=== PATIENT | male | born 1965 | race Caucasian/White ===

== ENCOUNTER 2016-06-15 05:32 | Observation (INO) | payer SELFPAY ==
[~2016-06-15] VITALS: Ht 172.7 cm; Wt 80.4 kg
[2016-06-15] VITALS (9 sets, daily range): BP systolic 145–155; BP diastolic 109–121; PULSE 79–96; RESP 14–20; TEMP 96.3–97.7; O2SAT 95–98
[~2016-06-15 05:32] MED LIST: ALBUAER3 INH; ATOR40TA16 PO; CYCL1TAB29 PO; HYDR12.57 PO; LISI10TA3 PO; PERC7.5T13 PO; VIAG100T PO; WELLTAB39 PO; XANA1TAB2 PO; ZOLP10TA3 PO
[2016-06-15 05:56] LABS: AUTOMATED NEUTROPHIL # 4.6 TH/MM3 (1.8-7.7); BASOPHIL % 0.7 % (0.0-2.0); EOSINOPHIL # 0.1 TH/MM3 (0-0.4); EOSINOPHIL % 1.4 % (0.0-4.0); HEMATOCRIT 39.1 % (39.0-51.0); LYMPH % 25.3 % (9.0-44.0); LYMPHOCYTE # 1.7 TH/MM3 (1.0-4.8); MEAN CELL VOLUME 87.4 FL (80.0-100.0); MEAN CORPUSCULAR HEMOGLOBIN 28.8 PG (27.0-34.0); MEAN CORPUSCULAR HGB CONC 32.9 % (32.0-36.0); MONO % 7.9 % (0.0-8.0); NEUT % 64.7 % (16.0-70.0); PLATELET COUNT 391 TH/MM3 (150-450); RED BLOOD COUNT 4.47 MIL/MM3 (4.50-5.90); RED CELL DISTRIBUTION WIDTH 12.3 % (11.6-17.2); WHITE BLOOD COUNT 6.9 TH/MM3 (4.0-11.0)
[2016-06-15 05:59] LABS: HEMO FLAGS DIFF FINAL
[2016-06-15] MEDS ORDERED: SODIUM CHLORIDE 0.9% FLUSH 10 ML FLUSH IVF PRN ×2 (06:00→06:30)
[2016-06-15] MEDS ORDERED: ASPI81CH CHEW (06:04)
[2016-06-15 06:11] LABS: CHLORIDE 104 MEQ/L (98-107); POTASSIUM 3.4 MEQ/L (3.5-5.1); SODIUM (NA) 144 MEQ/L (136-145)
--- NOTE | 2016-06-15 06:11 | PD ---
HPI Chief Complaint: Neuro Symptoms/ Deficits Time Seen by Provider: 05:46 Travel History International Travel<30 days: No Contact w/Intl Traveler<30days: No Traveled to known affect area: No History of Present Illness HPI 50-year-old male presents to the emergency department by private transportation for evaluation of slurring of speech. Patient states he awakened from sleep around 4:30 this morning and no one else was awakened the house when he started to sitting with the radio he noticed he was having some difficulty with his speech. Patient reports that this resolved after a brief period of time and then when he tried to sitting again noticed that he was having some difficulty with his speech did seem to again clear and go back to normal and stuttering symptoms seemed to have resolved. Patient states he had something similar to this 1 year ago so decided to come to the emergency room for evaluation. Patient was able to drive himself to the emergency room. Patient does not report headache visual disturbance difficulty swallowing weakness on one side of his body or the other side of his body or balance disturbance. Patient does have history of hypertension and is prescribed aspirin daily. Patient occasionally drinks alcohol but does not smoke cigarettes. Patient states he is not having any difficulty with his speech at this time. Patient does not report any chest pain or shortness of breath. No abdominal pain. No recent injury fall trauma or febrile illness. PFSH Past Medical History Narrative Medical Anxiety/depression, hypertension, dyslipidemia, TIA, GERD, chronic pain syndrome ; vasectomy, leg surgery; occasional alcohol use, no tobacco use; nursing notes reviewed Blood Disorders: No Anxiety: Yes Depression: Yes Cancer: No Cardiovascular Problems: Yes High Cholesterol: Yes Congestive Heart Failure: No Cerebrovascular Accident: No Diabetes: No Diminished Hearing: No Endocrine: No Gastrointestinal Disorders: Yes GERD: Yes Genitourinary: No Hypertension: Yes (NO MEDS) Immune Disorder: No Implanted Vascular Access Dvce: No Musculoskeletal: Yes Neurologic: No Psychiatric: Yes Reproductive: No Respiratory: Yes (CHRONIC COUGH) Ulcer: No Past Surgical History Genitourinary Surgery: Yes (vasectomy) Pacemaker: No Other Surgery: Yes (RT LEG) Social History Alcohol Use: Yes (occ) Tobacco Use: Yes (1 PACK PER WEEK) Substance Use: Yes (smokes marijuana) Allergies-Medications (Allergen,Severity, Reaction): Coded Allergies: *MDRO Multi-Drug Resistant Organism (Verified Adverse Reaction, Unknown, ) 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 MRSA PCR Screen NEGATIVE - 09/26/2014 and 02/13/2015 CLEARED by Infection Control Reported Meds & Prescriptions Reported Meds & Active Scripts Active Zolpidem (Zolpidem Tartrate) 10 Mg Tab 10 Mg PO HS PRN Atorvastatin (Atorvastatin Calcium) 40 Mg Tab 40 Mg PO HS Percocet (Oxycodone-Acetaminophen) 7.5-325 mg Tab 1 Tab PO Q6H PRN Xanax (Alprazolam) 1 Mg Tab 1 Mg PO Q8H PRN Hydrochlorothiazide 12.5 Mg Cap 12.5 Mg PO DAILY Lisinopril 10 Mg Tab 10 Mg PO DAILY Proair Hfa 8.5 GM Inh (Albuterol Sulfate) 90 Mcg/Act Aer 2 Puff INH Q6H PRN 108 mcg/actuation Wellbutrin Xl 24 HR (Bupropion HCl) 300 Mg Tab 450 Mg PO DAILY Reported Omeprazole 20 Mg Tab 20 Mg PO DAILY Aspirin 81 Mg Chew 162 Mg CHEW ONCE Review of Systems Except as stated in HPI: all other systems reviewed are Neg General / Constitutional: No: Fever Eyes: No: Visual changes HENT: No: Headaches, Lightheadedness Cardiovascular: No: Chest Pain or Discomfort, Syncope Respiratory: No: Shortness of Breath Gastrointestinal: No: Nausea, Vomiting, Abdominal Pain Genitourinary: No: Dysuria Musculoskeletal: No: Pain Skin: No Rash Neurologic: Positive: Slurred Speech (intermittent "not now"), No: Weakness, Dizziness, Syncope, Focal Abnormalities, Coordination Problem, Ataxia, Headache , Paresthesia Psychiatric: No: Anxiety Hematologic/Lymphatic: No: Easy Bruising Physical Exam Narrative GENERAL: Well-developed well-nourished male in no acute distress no respiratory distress; GCS 15; NIHSS: 0 SKIN: Warm and dry. HEAD: Atraumatic. Normocephalic. EYES: Pupils equal and round. No scleral icterus. No injection or drainage. ENT: No nasal bleeding or discharge. Mucous membranes pink and moist. NECK: Trachea midline. No JVD. CARDIOVASCULAR: Regular rate and rhythm. Radial and dorsalis pedis pulses 2+ to palpation bilaterally. RESPIRATORY: No accessory muscle use. Clear to auscultation. Breath sounds equal bilaterally. GASTROINTESTINAL: Abdomen soft, non-tender, nondistended. Hepatic and splenic margins not palpable. MUSCULOSKELETAL: Extremities without clubbing, cyanosis, or edema. No obvious deformities. NEUROLOGICAL: Awake and alert. No obvious cranial nerve deficits. Motor grossly within normal limits. Five out of 5 muscle strength in the arms and legs. No limb ataxia. No pronator drift. Normal speech. PSYCHIATRIC: Appropriate mood and affect; insight and judgment normal. Data Data Last Documented VS Vital Signs Date Time Temp Pulse Resp B/P Pulse Ox O2 Delivery O2 Flow Rate FiO2 06/15/16 05:40 96 18 149/109 Orders Electrocardiogram (06/15/16 05:46) Prothrombin Time / Inr (Pt) (06/15/16 05:46) Act Partial Throm Time (Ptt) (06/15/16 05:46) Complete Blood Count With Diff (06/15/16 05:46) Basic Metabolic Panel (Bmp) (06/15/16 05:46) Drug Screen, Random Urine (06/15/16 05:46) Troponin I (06/15/16 05:46) Urinalysis - C+S If Indicated (06/15/16 05:46) Ct Brain W/O Iv Contrast(Rout) (06/15/16 05:46) Chest, Single Ap (06/15/16 05:46) Ecg Monitoring (06/15/16 05:46) Iv Access Insert/Monitor (06/15/16 05:46) Oximetry (06/15/16 05:46) Sodium Chloride 0.9% Flush (Ns Flush) (06/15/16 06:00) Sodium Chlor 0.9% 1000 Ml Inj (Ns 1000 M (06/15/16 06:15) Head Of Bed (06/15/16 06:11) Mri Brain W&W/O Contrast (06/15/16 ) Mra Brain W/O Contrast (Cow) (06/15/16 ) Admit Order (Ed Use Only) (06/15/16 ) ^ Saline Lock (06/15/16 06:29) Resp Oxygen Yury C Titrat 1-4 L (06/15/16 ) Notify Dr: Other (06/15/16 06:29) Sodium Chloride 0.9% Flush (Ns Flush) (06/15/16 09:00) Sodium Chloride 0.9% Flush (Ns Flush) (06/15/16 06:30) Consult Neurology (06/15/16 ) Labs Laboratory Tests Test 06/15/16 05:48 White Blood Count 6.9 TH/MM3 Red Blood Count 4.47 MIL/MM3 Hemoglobin 12.9 GM/DL Hematocrit 39.1 % Mean Corpuscular Volume 87.4 FL Mean Corpuscular Hemoglobin 28.8 PG Mean Corpuscular Hemoglobin 32.9 % Concent Red Cell Distribution Width 12.3 % Platelet Count 391 TH/MM3 Mean Platelet Volume 6.7 FL Neutrophils (%) (Auto) 64.7 % Lymphocytes (%) (Auto) 25.3 % Monocytes (%) (Auto) 7.9 % Eosinophils (%) (Auto) 1.4 % Basophils (%) (Auto) 0.7 % Neutrophils # (Auto) 4.6 TH/MM3 Lymphocytes # (Auto) 1.7 TH/MM3 Monocytes # (Auto) 0.5 TH/MM3 Eosinophils # (Auto) 0.1 TH/MM3 Basophils # (Auto) 0.0 TH/MM3 CBC Comment DIFF FINAL Differential Comment Prothrombin Time 11.6 SEC Prothromb Time International 1.0 RATIO Ratio Activated Partial 26.1 SEC Thromboplast Time Sodium Level 144 MEQ/L Potassium Level 3.4 MEQ/L Chloride Level 104 MEQ/L Carbon Dioxide Level 34.3 MEQ/L Anion Gap 6 MEQ/L Blood Urea Nitrogen 9 MG/DL Creatinine 0.87 MG/DL Estimat Glomerular Filtration 93 ML/MIN Rate Random Glucose 93 MG/DL Calcium Level 8.1 MG/DL Troponin I LESS THAN 0.02 NG/ML MDM Medical Decision Making Medical Screen Exam Complete: Yes Emergency Medical Condition: Yes Medical Record Reviewed: Yes (February 2015 MRI brain with and without contrast minimal nonspecific white matter changes no acute stroke; MRA brain without contrast no acute changes circumflex on Alanis; ultrasound carotids normal) Interpretation(s) EKG: Normal sinus rhythm rate [address] elevation injury pattern or ectopy noted CT brain w/o contrast: Reading per radiologist Dr. Memo Vela "normal examination" CBC & BMP Diagram 06/15/16 05:48 Vital Signs Date Time Temp Pulse Resp B/P Pulse Ox O2 Delivery O2 Flow Rate FiO2 06/15/16 05:40 96 18 149/[address] 06/15/16 0546 Signed Impressions: Service Date/Time: Wednesday, June 15, 2016 05:44 - CONCLUSION: Normal examination. Memo Vela Jr., MD Chest X-Ray 06/15/16 0546 Signed Impressions: Service Date/Time: Wednesday, June 15, 2016 06:20 - CONCLUSION: No acute disease. Memo Vela Jr., MD Differential Diagnosis CVA, TIA, arrhythmia, hypoglycemia, substance ingestion, ACS Narrative Course Patient placed on brake press operator placed supine normal saline 70 cc per hour ordered patient's blood sugar was 106 patient is monitored in sinus rhythm by brake press operator and initial blood pressure was 149/106. Patient sent for stat CT brain noncontrast and call placed to neurology. Stroke alert was NOT called as patient was asymptomatic and NIHSS score was 0. At 6:02 AM patient return from CT; patient's age without slurring and patient states his speech is his normal. Remainder of neurologic exam is within normal range. Repeat neuro exam NIHSS: 0; patient now reports this has happened a few times over the past year since his initial presentation about a year ago but did not have it checked out. At 6:[address] brain noncontrast is normal. No focal neurologic findings; speech clear, patient reports his speech is his normal. Physician Communication Physician Communication Neurology called at and discussed with Neurologist Dr Askew 06:02 AM --- not stroke alert; MR and neurology consult this AM; case discussed with Dr Aviles for OBS admission Diagnosis Primary Impression: TIA (transient ischemic attack) Qualified Code: G45.9 - Transient cerebral ischemia, unspecified type Additional Impression: Hypertension Admitting Information Admitting Physician Requests: Viviana Michuad MD June 15, 2016 06:11
[2016-06-15 06:14] LABS: ANION GAP 6 MEQ/L (5-15); BICARBONATE 34.3 MEQ/L (21.0-32.0); BLOOD UREA NITROGEN 9 MG/DL (7-18)
[2016-06-15 06:15] LABS: APTT (PATIENT) 26.1 SEC (24.3-30.1); PROTHROMBIN TIME - PATIENT 11.6 SEC (9.8-11.6)
[2016-06-15 06:18] LABS: GLOMERULAR FILTRATION RATE 93 ML/MIN (>89)
--- NOTE | 2016-06-15 06:20 | RADHPO ---
EXAM DATE/TIME: 06/15/2016 05:44 [facility] COMPARISON: CT BRAIN W/O CONTRAST, February 12, 2015, 16:08. INDICATIONS : Slurred speech. Evaluate for cerebrovascular attack. RADIATION DOSE: 62.44 CTDIvol (mGy) MEDICAL HISTORY : Hypertension. SURGICAL HISTORY : None. ENCOUNTER: Initial ACUITY: 1 day PAIN SCALE: 0/10 LOCATION: cranial TECHNIQUE: Multiple contiguous axial images were obtained of the head. Using automated exposure control and adj ustment of the mA and/or kV according to patient size, radiation dose was kept as low as reasonably a chievable to obtain optimal diagnostic quality images. FINDINGS: CEREBRUM: The ventricles are normal for age. No evidence of midline shift, mass lesion, hemorrhage or acute in farction. No extra-axial fluid collections are seen. POSTERIOR FOSSA: The cerebellum and brainstem are intact. The 4th ventricle is midline. The cerebellopontine angle i s unremarkable. EXTRACRANIAL: The visualized portion of the orbits is intact. SKULL: The calvaria is intact. No evidence of skull fracture. CONCLUSION: Normal examination. Memo Vela Jr., MD on June 15, 2016 at 6:18 Board Certified Radiologist. This report was verified electronically.
[2016-06-15] MEDS: SODIUM CHLOR 0.9% 1000 ML INJ 1,000 ML IV SCH ×4 (06:23→16:46)
--- NOTE | 2016-06-15 06:28 | RADHPO ---
EXAM DATE/TIME: 06/15/2016 06:20 [facility] COMPARISON: CHEST SINGLE AP, February 12, 2015, 15:49. INDICATIONS : Weakness. CVA symtoms. MEDICAL HISTORY : None. SURGICAL HISTORY : None. ENCOUNTER: Initial ACUITY: 1 day PAIN SCORE: 6/10 LOCATION: Bilateral chest FINDINGS: A single view of the chest demonstrates the lungs to be symmetrically aerated without evidence of mas s, infiltrate or effusion. Calcified granuloma within the right lung apex is stable. The cardiomedias tinal contours are unremarkable. Osseous structures are intact. CONCLUSION: No acute disease. Memo Vela Jr., MD on June 15, 2016 at 6:27 Board Certified Radiologist. This report was verified electronically.
[2016-06-15] MEDS ORDERED: GLUCAGON 1 MG/ML VIAL OTHER PRN (06:30)
[2016-06-15] MEDS ORDERED: SODIUM CHLORIDE 0.9% FLUSH 10 ML FLUSH IV FLUSH PRN (06:30)
[2016-06-15] MEDS ORDERED: DEXTROSE 50% IN WATER 50 ML VIAL(D50) IV PUSH PRN (06:30)
[2016-06-15] MEDS ORDERED: OMEP20TA PO (06:45)
[2016-06-15] MEDS ORDERED: ASPIRIN 325 MG TAB PO ONE (06:45)
[2016-06-15] MEDS: INSULIN ASPART SUPPLEMENTAL SCALE SQ SCH ×4 (07:00→21:00)
[2016-06-15 07:17] LABS: BLOOD, URINE NEG (NEG); GLUCOSE,URINE NEG (NEG); KETONE, URINE NEG (NEG); NITRITE,URINE NEG (NEG); PH, URINE 7.5 (5.0-8.5)
[2016-06-15 07:18] LABS: METHOD OF COLLECTION CLEAN CATCH; URINE COLOR STRAW (YELLW/STRAW)
[2016-06-15 07:21] LABS: CULTURE IF INDICATED CULT NOT INDICATED; RBC, URINE 0-3 /hpf (0-3)
[2016-06-15 07:22] LABS: COMMENT (UR) CULT NOT INDICATED; COMMENT2 (UR) MUCOUS PRESENT; SQUAMOUS EPITHELIAL CELL URINE 0-5 /hpf (0-5)
[2016-06-15 07:33] LABS: AMPHETAMINE, URINE NEG (NEG)
[2016-06-15 07:41] LABS: COCAINE, URINE NEG (NEG)
[2016-06-15 07:46] LABS: BARBITURATES, URINE NEG (NEG)
--- NOTE | 2016-06-15 08:40 | RADHPO ---
EXAM DATE/TIME: 06/15/2016 07:57 [facility] COMPARISON: MRA BRAIN W/O CONTRAST, February 13, 2015, 14:09. INDICATIONS : Slurred speech. MEDICAL HISTORY : Hypertension. Diabetes mellitus type 2. SURGICAL HISTORY : Right leg. ENCOUNTER: Initial ACUITY: 1 day PAIN SCORE: 2/10 LOCATION: head Please note a normal MRA of the brain does not entirely exclude the possibility of a small aneurysm, nor the possibility of distal intracranial vessel disease. TECHNIQUE: 3D time of flight MRA was performed. Source images, multiplanar STS MIP, and 3D volume MIP reconstru ctions were reviewed. FINDINGS: There is excellent visualization of the major intracranial arteries out to the second-order branch ve ssels. There is no evidence for aneurysm, vessel truncation or stenosis, and no evidence for vascula r malformation. Persistent circulation of the right posterior cerebral artery. Dominant left ve rtebral artery. Basilar artery unremarkable. There are some atherosclerotic changes of the distal pos terior tibial arteries. Distal internal carotid arteries are normal in caliber. Anterior communicatin g artery. CONCLUSION: 1. Normal variants as described above. 2. Atherosclerotic changes of the distal posterior cerebral arteries. 3. No major vessel occlusion/stenosis. Julio Clay MD on June 15, 2016 at 8:36 Board Certified Radiologist. This report was verified electronically.
--- NOTE | 2016-06-15 08:47 | RADHPO ---
EXAM DATE/TIME: 06/15/2016 07:57 [facility] COMPARISON: MRI BRAIN W & W/O CONTRAST, February 13, 2015, 14:09. INDICATIONS : Slurred speech. MEDICAL HISTORY : Diabetes mellitus type 2. Hypertension. SURGICAL HISTORY : Right leg. ENCOUNTER: Initial ACUITY: 1 day PAIN SCORE: 2/10 LOCATION: head TECHNIQUE: Multiplanar, multisequence MRI of the brain was performed without contrast. FINDINGS: CEREBRUM: The ventricles are normal for age. No evidence of midline shift, mass lesion, hemorrhage or acute in farction. No extraaxial fluid collections are seen. The pituitary gland and suprasellar cistern are normal in configuration. WHITE MATTER: A few scattered foci of bright T2 signal abnormalities are seen in the white matter. POSTERIOR FOSSA: The cerebellum and brainstem are intact. The 4th ventricle is midline. The cerebellopontine angle is unremarkable. The cerebellar tonsils are normal in position. DIFFUSION IMAGING: No focal areas of restricted diffusion are seen. No evidence of acute infarction. EXTRACRANIAL: The visualized portions of the orbits and paranasal sinuses are unremarkable. CONCLUSION: 1. Minimal nonspecific white matter changes. 2. Otherwise unremarkable MRI of the brain. Julio Clay MD on June 15, 2016 at 8:42 Board Certified Radiologist. This report was verified electronically.
[2016-06-15] MEDS: SODIUM CHLORIDE 0.9% FLUSH 10 ML FLUSH IV FLUSH SCH ×2 (09:00→23:05)
[2016-06-15] MEDS ORDERED: SODIUM CHLORIDE 0.9% FLUSH 10 ML FLUSH IV FLUSH SCH (09:00)
--- NOTE | 2016-06-15 09:19 | PD.CONS ---
History of Present Illness Service Neurology Consult Requested By er Reason for Consult tia Primary Care Physician Rome Hassna MD History of Present Illness 50-year-old male presents to the emergency department by private transportation for evaluation of slurring of speech. occurred early am, now clear and go back to normal and stuttering symptoms seemed to have resolved. no weakness, no vision loss, no sensory symptoms. no smith. bp 149/109, ct brain negative. glucose no hx of clotting d/o. Patient states he had something similar to this 1 year ago so decided to come to the emergency room for evaluation and w/u negative for acute stroke. had severe htn at that time and told to control bp and take aspirin daily which he has been. today mri brain no acute lesion stable. 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 MRSA PCR Screen NEGATIVE - 09/26/2014 and 02/13/2015 CLEARED by Infection Control Reported Meds & Prescriptions Reported Meds & Active Scripts Active Zolpidem (Zolpidem Tartrate) 10 Mg Tab 10 Mg PO HS PRN Atorvastatin (Atorvastatin Calcium) 40 Mg Tab 40 Mg PO HS Percocet (Oxycodone-Acetaminophen) 7.5-325 mg Tab 1 Tab PO Q6H PRN Xanax (Alprazolam) 1 Mg Tab 1 Mg PO Q8H PRN Hydrochlorothiazide 12.5 Mg Cap 12.5 Mg PO DAILY Lisinopril 10 Mg Tab 10 Mg PO DAILY Proair Hfa 8.5 GM Inh (Albuterol Sulfate) 90 Mcg/Act Aer 2 Puff INH Q6H PRN 108 mcg/actuation Wellbutrin Xl 24 HR (Bupropion HCl) 300 Mg Tab 450 Mg PO DAILY Reported Omeprazole 20 Mg Tab 20 Mg PO DAILY Aspirin 81 Mg Chew 162 Mg CHEW ONCE Review of Systems Except as stated in HPI: all other systems reviewed are Neg/as above, admit hp Review of Systems All other ROS: ROS reviewed as documented in chart Past Family Social History Allergies: Coded Allergies: *MDRO Multi-Drug Resistant Organism (Verified Adverse Reaction, Unknown, ) 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 MRSA PCR Screen NEGATIVE - 09/26/2014 and 02/13/2015 CLEARED by Infection Control Active Ordered Medications Current Medications Medications (Trade) Dose Ordered Sig/Vishnu Route Start Time Stop Time Status Last Admin (NS 1000 ml Inj) 1,000 ml @ 70 mls/hr [id number] IV 06/15/16 06:15 06/15/16 06:23 (NS Flush) 2 ml BID IV FLUSH 06/15/16 09:00 (NS Flush) 2 ml UNSCH PRN IV FLUSH 06/15/16 06:30 (D50w (Vial) Inj) 25 ml UNSCH PRN IV PUSH 06/15/16 06:30 (Glucagon Inj) 1 mg UNSCH PRN OTHER 06/15/16 06:30 Exam I&O / VS Vital Signs Date Time Temp Pulse Resp B/P Pulse Ox O2 Delivery O2 Flow Rate FiO2 06/15/16 06:53 85 14 145/116 96 Room Air 06/15/16 05:40 96 18 149/109 General: Alert and Oriented, No acute distress Neurologic: Alert, Oriented, No focal defects Psychiatric: Cooperative, Appropriate mood & affect Review/Management Diagnosis/Plan: (1) TIA (transient ischemic attack) Plan: possible recurrent tia vs 2/2 htn vs anxiety vs sz recs change to plavix bp control- diastolic running high. wonder if it could be related to wellbutrin at all? defer to medical/pcp statin heme eval for hypercoag state- could be done in vs outpatient- defer to medical team exercise can f/u outpatient in 1-2 weeks (2) Anxiety disorder (3) Hypertension (4) HLD (hyperlipidemia) Problem Qualifiers (1) TIA (transient ischemic attack): Qualified Code: G45.9 - Transient cerebral ischemia, unspecified type (2) Anxiety disorder: Qualified Code: F41.1 - Generalized anxiety disorder (3) Hypertension: Qualified Code: I10 - Essential hypertension (4) HLD (hyperlipidemia): Qualified Code: E78.2 - Mixed hyperlipidemia Lance Melendez MD June 15, 2016 09:19
[2016-06-15] MEDS: CLOPIDOGREL 75 MG TAB PO SCH (10:49)
[2016-06-15] MEDS: HEPARIN SODIUM - SQ 10,000 UNITS/ML VIAL SQ SCH ×3 (10:49→23:05)
[2016-06-15] MEDS ORDERED: ALBUTEROL SULFATE 90 MCG/ACT HFA 8 GM INHALER INH PRN (14:00)
[2016-06-15] MEDS ORDERED: ASPIRIN 81 MG CHEW TAB CHEW ONE (14:00)
[2016-06-15] MEDS ORDERED: ZOLPIDEM TARTRATE 10 MG TAB PO PRN (14:00)
[2016-06-15] MEDS ORDERED: XANA1TAB2 PO (14:31)
[2016-06-15] MEDS ORDERED: PERC7.5T13 PO (14:31)
--- NOTE | 2016-06-15 14:32 | PD.PN.STU ---
Subjective Remarks Patient is a 50 year old gentleman with pertinent PMH of TIA, HPL, and HTN who presented to the ED 06/15 with a complaint of slurred speech. He woke from sleep and began listening to the radio when he noticed his speech was gargled/slurred and he could not control it. He denies vision loss, headache, weakness during the episode. He had a similar episode one year ago and the workup was negative. He was told to take an aspirin at that time and placed on BP medication. He denies vomiting, diarrhea, loss of consciousness, and headache. PMH: anxiety/depression HTN HPL TIA GERD lower back pain (chronic) Meds: Zolpidem -statin Percocet Xanax HCTZ Lisinopril Proair Wellbutrin Omeprazole Aspirin PSH: Vasectomy Leg surgery for a cut/wound FH: unknown (adopted) Social: very rarely smokes rarely drinks sexually active with girlfriend of 10 years Objective Vitals GENERAL: Well-developed well-nourished male in no acute distress no respiratory distress SKIN: Warm and dry. HEAD: Atraumatic. Normocephalic. EYES: Pupils equal and round. No scleral icterus. No injection or drainage. Extraocular movements intact. ENT: Mucous membranes pink and moist. NECK: Trachea midline. No JVD. CARDIOVASCULAR: Regular rate and rhythm. Radial and dorsalis pedis pulses appreciated bilaterally. RESPIRATORY: No accessory muscle use. Clear to auscultation. Breath sounds equal bilaterally. GASTROINTESTINAL: Abdomen soft, non-tender, nondistended. No organomegaly. MUSCULOSKELETAL: Extremities without clubbing, cyanosis, or edema. No obvious deformities. NEUROLOGICAL: Awake and alert. No obvious cranial nerve deficits. Motor grossly within normal limits. Five out of 5 muscle strength in the arms and legs. No limb ataxia. No pronator drift. Normal speech. PSYCHIATRIC: Appropriate mood and affect; insight and judgment normal. Vital Signs Date Time Temp Pulse Resp B/P Pulse Ox O2 Delivery O2 Flow Rate FiO2 06/15/16 12:00 97.5 88 20 151/111 98 06/15/16 11:38 96 21 06/15/16 08:30 96.8 85 20 155/121 98 06/15/16 06:53 85 14 145/116 96 Room Air 06/15/16 05:40 96 18 149/109 I/O 06/14/16 06/14/16 06/14/16 06/15/16 06/15/16 06/15/16 06:59 14:59 22:59 06:59 14:59 22:59 Output Total 300 ml Balance -300 ml Output Urine Total 300 ml # Voids 1 Result Diagram: 06/15/16 0548 06/15/16 0548 A/P Assessment and Plan TIA: Place on telemetry Order carotid U/S Consider Heparin to Warfarin bridge for anticoagulation Hypertension: Currently 151/111 Increase HCTZ to 25 mg Hyperlipidemia: Order lipid panel Hypokalemia: Continue to monitor - currently 3.5 Hypocalcemia: Continue to monitor - currently 8.1 GERD: On pantoprazole Chronic lower back pain: Continue home medications - Percocet Depression: Continue Wellbutrin Anxiety: Xanax Gonzalo Garsia June 15, 2016 14:32 Daren Umaña MD June 16, 2016 14:12
[2016-06-15] MEDS: oxyCODONE/ACETAMINOPHEN 7.5 MG/325 MG TAB PO PRN ×2 (14:56→22:00)
[2016-06-15] MEDS: PANTOPRAZOLE SOD 20 MG DELAYED RELEASE TAB PO SCH (14:56)
[2016-06-15] MEDS: LISINOPRIL 10 MG TAB PO SCH (14:56)
[2016-06-15] MEDS: ALPRAZolam 1 MG TAB PO PRN (14:56)
[2016-06-15] MEDS ORDERED: BUPROPION HCL 150 MG PO SCH (15:15)
--- NOTE | 2016-06-15 15:34 | EC ---
Study Study Date:06/15/2016 STUDY CONCLUSIONS SUMMARY - Left ventricle: The cavity size was normal. There was mild focal basal hypertrophy of the septum. Systolic function was normal. The estimated ejection fraction was in the range of 55% to 60%. Wall motion was normal; there were no regional wall motion abnormalities. - Mitral valve: Mild regurgitation. - Tricuspid valve: Mild regurgitation. If LV function is below 40, please consider prescribing an ACEI or ARB or document rationale for non-use. PROCEDURE DATA STUDY STATUS: Elective. Procedure: Transthoracic echocardiography. Image quality was good. Scanning was performed from the parasternal, apical, and subcostal acoustic windows. Study completion: The patient tolerated the procedure well. Transthoracic echocardiography. M-mode, complete 2D, complete spectral Doppler, and color Doppler. Patient status: Inpatient. CARDIAC ANATOMY LEFT VENTRICLE: The cavity size was normal. There was mild focal basal hypertrophy of the septum. Systolic function was normal. The estimated ejection fraction was in the range of 55% to 60%. Wall motion was normal; there were no regional wall motion abnormalities. AORTIC VALVE: Trileaflet; normal thickness leaflets. Doppler: Transvalvular velocity was within the normal range. There was no stenosis. No regurgitation. AORTA: Aortic root: The aortic root was normal in size. MITRAL VALVE: Structurally normal valve. Doppler: Transvalvular velocity was within the normal range. There was no evidence for stenosis. Mild regurgitation. LEFT ATRIUM: The atrium was normal in size. RIGHT VENTRICLE: The cavity size was normal. Wall thickness was normal. PULMONIC VALVE: Doppler: Transvalvular velocity was within the normal range. There was no evidence for stenosis. No regurgitation. TRICUSPID VALVE: Structurally normal valve. Doppler: Transvalvular velocity was within the normal range. Mild regurgitation. PULMONARY ARTERY: The main pulmonary artery was normal-sized. Systolic pressure was within the normal range. RIGHT ATRIUM: The atrium was normal in size. PERICARDIUM: There was no pericardial effusion. SYSTEMIC VEINS: Inferior vena cava: The vessel was normal in size. BASIC MEASUREMENTS ADULT Normal Left ventricle LV internal dimension, ED, chordal level, 43.2 mm 43-52 PLAX LV internal dimension, ES, chordal level, 33.4 mm 23-38 PLAX Fractional shortening, chordal level, PLAX *23 % >29 LV posterior wall thickness, ED 10.2 mm IVS/LVPW ratio, ED *1.42 <1.3 Ventricular septum Septal thickness, ED 14.5 mm Aortic valve Leaflet separation 20 mm 15-26 Right ventricle RV internal dimension, ED, PLAX 24.7 mm 19-38 BASIC MEASUREMENTS ADULT Normal Aortic valve Leaflet separation 20 mm 15-26 Aorta Root diameter, ED 37 mm 20-37 Left atrium Anterior-posterior dimension, ES 37 mm 19-40 LA/aortic root ratio 1 DOPPLER MEASUREMENTS ADULT Normal Main pulmonary artery Pressure, S 25 mm Hg =30 Mitral valve Peak E-wave velocity 63.2 cm/s Peak A-wave velocity 65.6 cm/s Peak E/A ratio 1 Tricuspid valve Regurgitant peak velocity 194 cm/s Peak RV-RA gradient, S 15 mm Hg Maximal regurgitant velocity 194 cm/s Systemic veins Estimated CVP 10 mm Hg Right ventricle RV pressure, S 25 mm Hg <30 LEGEND: Mean values are shown as u=mean value. Asterisk (*) dueñas values outside specified normal range. Prepared and signed by Corine Carlin [id number]
--- NOTE | 2016-06-15 15:37 | EKG ---
Date Performed: 06/15/2016 Time Performed: 05:59:54 PTAGE: 50 years EKG: Sinus rhythm . Compared to prior tracing no significant change Normal ECG PREVIOUS TRACING : 02/12/2015 15.44 DOCTOR: Radhika Light Interpretating Date/Time 06/15/2016 15:34:54
[2016-06-15] MEDS ORDERED: POTASSIUM CHLORIDE 10 MEQ CONTROLLED RELEASE TAB PO ONE (16:00)
--- NOTE | 2016-06-15 16:03 | HHI.HP ---
HPI Service [facility] Hospitalists Primary Care Physician Rome Hassan MD Admission Diagnosis TIA/intermittent speech disturbance; HTN Diagnoses: Chief Complaint: Slurred speech Travel History International Travel<30 Days: No Contact w/Intl Traveler <30 Da: No Traveled to Known Affected Are: No History of Present Illness This is a 54-year-old male with past medical history of hypertension, hyperlipidemia, bipolar disorder, depression who presents to [facility] after he had an episode of slurred speech this a.m. The patient states that he woke up around 4:30 AM on his usual state of health and then had what he calls a few sentences of slurred speech. The patient states that everything resolved after a few seconds. He denies double vision, blurry vision, arm or lotion any weakness, facial droop. The patient complains of headache at the moment of interview, denies nausea or vomiting, denies social breath. The patient also complains of left-sided chest pain described as throbbing, nonradiating. The patient states he has been getting this chest pain on and off for the past 2 months. He states that the pain sometimes gets relief with ingestion of fluids was at times it doesn't. Denies palpitations or diaphoresis. Review of Systems As per history of present illness, other systems reviewed by me and negative Past Family Social History Past Medical History 1. Hypertension. 2. Hyperlipidemia. 3. Tobacco abuse. 4. TIAs. 5. Bipolar disorder. 6. Depression. 7. Cocaine abuse. Past Surgical History 1. Vasectomy 2. Leg surgery for a cut/wound Reported Medications Percocet (Oxycodone-Acetaminophen) 7.5-325 mg Tab 1 Tab PO Q6H PRN Xanax (Alprazolam) 1 Mg Tab 1 Mg PO Q8H PRN Zolpidem (Zolpidem Tartrate) 10 Mg Tab 10 Mg PO HS PRN Atorvastatin (Atorvastatin Calcium) 40 Mg Tab 40 Mg PO HS Hydrochlorothiazide 12.5 Mg Cap 12.5 Mg PO DAILY Lisinopril 10 Mg Tab 10 Mg PO DAILY Proair Hfa 8.5 GM Inh (Albuterol Sulfate) 90 Mcg/Act Aer 2 Puff INH Q6H PRN 108 mcg/actuation Wellbutrin Xl 24 HR (Bupropion HCl) 300 Mg Tab 450 Mg PO DAILY Omeprazole 20 Mg Tab 20 Mg PO DAILY Aspirin 81 Mg Chew 162 Mg CHEW ONCE Allergies: Coded Allergies: *MDRO Multi-Drug Resistant Organism (Verified Adverse Reaction, Unknown, ) 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 MRSA PCR Screen NEGATIVE - 09/26/2014 and 02/13/2015 CLEARED by Infection Control Active Ordered Medications Current Medications Medications (Trade) Dose Ordered Sig/Vishnu Route Start Time Stop Time Status Last Admin (NS 1000 ml Inj) 1,000 ml @ 70 mls/hr [id number] IV 06/15/16 06:15 06/15/16 06:23 (NS Flush) 2 ml BID IV FLUSH 06/15/16 09:00 06/15/16 09:00 (NS Flush) 2 ml UNSCH PRN IV FLUSH 06/15/16 06:30 (D50w (Vial) Inj) 25 ml UNSCH PRN IV PUSH 06/15/16 06:30 (Glucagon Inj) 1 mg UNSCH PRN OTHER 06/15/16 06:30 (Plavix) 75 mg DAILY PO 06/15/16 09:30 06/15/16 10:49 (Heparin Inj) 5,000 units DAILY@00,08,16 SQ 06/15/16 09:30 06/15/16 10:49 (Lipitor) 40 mg HS PO 06/15/16 21:00 (Proair Hfa Inh) 2 puff Q6H PRN INH 06/15/16 14:00 (Xanax) 1 mg Q8H PRN PO 06/15/16 14:00 06/15/16 14:56 (Lipitor) 40 mg HS PO 06/15/16 21:00 Patient Own Medication PT OWN MED: buPROP... DAILY PO 06/15/16 15:15 Hold (Microzide) 12.5 mg DAILY PO 06/16/16 09:00 (Prinivil) 10 mg DAILY PO 06/15/16 14:00 06/15/16 14:56 (Percocet 7.5-325 Mg) 1 tab Q6H PRN PO 06/15/16 14:00 06/15/16 14:56 (Ambien) 10 mg HS PRN PO 06/15/16 14:00 (Protonix) 20 mg DAILY PO 06/15/16 14:00 06/15/16 14:56 (KCl) 30 meq ONCE ONCE PO 06/15/16 16:00 06/15/16 16:01 Family History Unknown since patient is adopted. Social History Patient states he rarely smokes. He states occasionally drinks alcohol Denies illicit drug use Patient previously abused cocaine and marijuana. Physical Exam Vital Signs Vital Signs Date Time Temp Pulse Resp B/P Pulse Ox O2 Delivery O2 Flow Rate FiO2 06/15/16 12:00 97.5 88 20 151/111 98 06/15/16 11:38 96 21 06/15/16 08:30 96.8 85 20 155/121 98 06/15/16 06:53 85 14 145/116 96 Room Air 06/15/16 05:40 96 18 149/109 Physical Exam GENERAL: This is a well-nourished, well-developed patient, in no apparent distress. SKIN: No rashes, ecchymoses or lesions. Cool and dry. HEAD: Atraumatic. Normocephalic. No temporal or scalp tenderness. EYES: Pupils equal round and reactive. Extraocular motions intact. No scleral icterus. No injection or drainage. ENT: Nose without bleeding, purulent drainage or septal hematoma. Throat without erythema, tonsillar hypertrophy or exudate. Uvula midline. Airway patent. NECK: Trachea midline. No JVD or lymphadenopathy. Supple, nontender, no meningeal signs. CARDIOVASCULAR: Regular rate and rhythm without murmurs, gallops, or rubs. RESPIRATORY: Clear to auscultation. Breath sounds equal bilaterally. No wheezes , rales, or rhonchi. GASTROINTESTINAL: Abdomen soft, non-tender, nondistended. No hepato-splenomegaly , or palpable masses. No guarding. MUSCULOSKELETAL: Extremities without clubbing, cyanosis, or edema. No joint tenderness, effusion, or edema noted. No calf tenderness. Negative Homans sign bilaterally. NEUROLOGICAL: Awake and alert. Cranial nerves II through XII intact. Motor and sensory grossly within normal limits. Five out of 5 muscle strength in all muscle groups. Normal speech. Laboratory Laboratory Tests Test 06/15/16 06/15/16 05:48 07:05 White Blood Count 6.9 Red Blood Count 4.47 Hemoglobin 12.9 Hematocrit 39.1 Mean Corpuscular Volume 87.4 Mean Corpuscular Hemoglobin 28.8 Mean Corpuscular Hemoglobin 32.9 Concent Red Cell Distribution Width 12.3 Platelet Count 391 Mean Platelet Volume 6.7 Neutrophils (%) (Auto) 64.7 Lymphocytes (%) (Auto) 25.3 Monocytes (%) (Auto) 7.9 Eosinophils (%) (Auto) 1.4 Basophils (%) (Auto) 0.7 Neutrophils # (Auto) 4.6 Lymphocytes # (Auto) 1.7 Monocytes # (Auto) 0.5 Eosinophils # (Auto) 0.1 Basophils # (Auto) 0.0 CBC Comment DIFF FINAL Differential Comment Prothrombin Time 11.6 Prothromb Time International 1.0 Ratio Activated Partial 26.1 Thromboplast Time Sodium Level 144 Potassium Level 3.4 Chloride Level 104 Carbon Dioxide Level 34.3 Anion Gap 6 Blood Urea Nitrogen 9 Creatinine 0.87 Estimat Glomerular Filtration 93 Rate Random Glucose 93 Calcium Level 8.1 Troponin I LESS THAN 0.02 Vitamin B12 Level 195 Thyroid Stimulating Hormone 1.510 3rd Gen Urine Collection Type CLEAN CATCH Urine Color STRAW Urine Turbidity CLEAR Urine pH 7.5 Urine Specific [place] 1.010 Urine Protein NEG Urine Glucose (UA) NEG Urine Ketones NEG Urine Occult Blood NEG Urine Nitrite NEG Urine Bilirubin NEG Urine Leukocyte Esterase NEG Urine RBC 0-3 Urine Squamous Epithelial 0-5 Cells Microscopic Urinalysis Comment CULT NOT INDICATED Urine Collection Time 0705 Urine Opiates Screen NEG Urine Barbiturates Screen NEG Urine Amphetamines Screen NEG Urine Benzodiazepines Screen POS Urine Cocaine Screen NEG Urine Cannabinoids Screen NEG Result Diagram: 06/15/16 0548 06/15/1648 Imaging Last Impressions Head CT 06/15/1646 Signed Impressions: Service Date/Time: Wednesday, June 15, 2016 05:44 - CONCLUSION: Normal examination. Memo Vela Jr., MD Chest X-Ray 06/15/16 0546 Signed Impressions: Service Date/Time: Wednesday, June 15, 2016 06:20 - CONCLUSION: No acute disease. Memo Vela Jr., MD Head Magnetic Resonance Angiography 06/15/16 0000 Signed Impressions: Service Date/Time: Wednesday, June 15, 2016 07:57 - CONCLUSION: 1. Normal variants as described above. 2. Atherosclerotic changes of the distal posterior cerebral arteries. 3. No major vessel occlusion/stenosis. Julio Clay MD Brain MRI 06/15/16 0000 Signed Impressions: Service Date/Time: Wednesday, June 15, 2016 07:57 - CONCLUSION: 1. Minimal nonspecific white matter changes. 2. Otherwise unremarkable MRI of the brain. Julio Clay MD Reviewed by me Assessment and Plan Problem List: (1) TIA (transient ischemic attack) ICD Code: G45.9 Status: Acute Plan: Head CT normal Brain MRI minimal nonspecific white matter changes, otherwise normal. Head MRA normal viands. Atherosclerotic changes of the distal posterior cerebral arteries but no major vessel occlusion/stenosis observed. Place patient under observation in the medical floor Monitor neuro checks every 4 hours Appreciate nephrology recommendations Neurology recommends changing aspirin to Plavix, BP control since diastolic blood pressure running high I will resume home antihypertensive medications and adjust dose as needed. I will consult hematology for evaluation for evaluation of hypercoagulable state Slurred speech could also be caused by medications, however will resume while hospitalized and observe. (2) Anxiety disorder ICD Code: F41.9 Status: Chronic Plan: To be stable at this time, continue Wellbutrin, alprazolam (3) Hypertension ICD Code: I10 Status: Chronic Plan: Seems to be slightly elevated. I will resume hydrochlorothiazide and lisinopril. I will increase the dose of lisinopril from 10-20 mg by mouth daily (4) HLD (hyperlipidemia) ICD Code: E78.5 Status: Acute Plan: Continue statin. Check fasting lipid profile. (5) Chest pain ICD Code: R07.9 Status: Acute Plan: Patient is having recurrent chest pain. EKG shows normal sinus rhythm without signs of ischemia, will repeat EKG now since patient is having chest pain. We'll repeat troponins which was negative on admission. Chest x-ray reviewed by me and without acute disease. If EKG and repeat troponin negative then will place patient nothing by mouth at midnight and order a nuclear stress test given that the patient has risk factors including hypertension, hyperlipidemia, smoking, TIA, H an unknown family history being adopted. Assessment and Plan DVT prophylaxis: SCDs, heparin subcutaneous. Code Status Full code Discussed Condition With Patient Problem Qualifiers (1) TIA (transient ischemic attack): Qualified Code: G45.9 - Transient cerebral ischemia, unspecified type (2) Anxiety disorder: Qualified Code: F41.1 - Generalized anxiety disorder (3) Hypertension: Qualified Code: I10 - Essential hypertension (4) HLD (hyperlipidemia): Qualified Code: E78.2 - Mixed hyperlipidemia (5) Chest pain: Qualified Code: R07.9 - Chest pain, unspecified type Daren Umaña MD June 15, 2016 16:03
--- NOTE | 2016-06-15 16:22 | MG ---
cc: COREY SOOD M.D. Lab No: [id number] Date: 06/15/2016 Age: 50 Sex: M Race: DATE OF : 1965, 50 years old. REFERRING PHYSICIAN: Dr. Melendez HISTORY: [id number] with photic stimulation, this is a sleep study, MRI shows nonspecific white matter changes. Admitted for slurred speech, some stuttering, history of hypertension, chronic coughing, anxiety, alcohol and substance use, caffeine, tobacco use, hyperlipidemia. MEDICATIONS: Medicines are Lipitor, Plavix, aspirin. DESCRIPTION OF RECORD: Shows some mild artifact, overall has alpha rhythm of 9 Hz, 20-60 microvolts seems to be asleep during the portion of the study some sleep spindles are noted. Some movement artifact in the photic stimulation was done. There is a posterior driving response. There is some questionable sharps seen at epoch 66. then dissipates again there is some slowing. The patient is asleep. IMPRESSION Questionable sharp wave activity noted in one since the ends epoch 66, may be due to patient's sleep state, however, no active seizure-like events noted. The rest of the EEG was unremarkable. Clinical correlation. MD BARRETT Gaines/halie /4:04 PM /4:12 PM
[2016-06-15 16:32] LABS: HEMOGLOBIN A1a 1.2 %; HEMOGLOBIN A1b 1.6 %; HEMOGLOBIN Ao 85.6 %; HEMOGLOBIN LA1C 1.8 %; HEMOGLOBIN P3 3.6 %
[2016-06-15] MEDS ORDERED: LISINOPRIL 10 MG TAB PO ONE (17:15)
[2016-06-15] MEDS ORDERED: CYANOCOBALAMIN 1000 MCG/ML VIAL IM ONE (18:00)
--- NOTE | 2016-06-15 20:54 | MB ---
cc: YOLI MONTGOMERY MD,LARA Cho M.D. DATE OF CONSULTATION: 06/15/2016 REASON FOR CONSULTATION: DATE OF : [address] Marisela Huber. CHIEF COMPLAINT: Dr. Huber requests consultation for Mr. Kaplan regarding thrombophilia associated with TIA symptoms. HISTORY OF PRESENT ILLNESS Mr. Kaplan is a 50-year-old man with multiple medical problems. He has history of hypertension, hyperlipidemia, chronic tobacco use, depression and chronic anxiety diagnosed over 20 years ago. He reportedly had symptoms of TIA in the past about a year ago. He had slurred speech. On the morning of admission he reports having slurred speech. He describes having speech coming out that was not what he intended. For this reason he came in to the hospital for evaluation. He denies any history of bipolar disorder. He denies other psychiatric illness. He has depression and anxiety. He was admitted for the slurred speech and possible TIA like symptoms. Workup shows MRA on June 15, 2016 normal variant. There is atherosclerotic changes of the distal posterior cerebral arteries. No major vessel occlusion or stenosis. MRI of the brain shows minimal nonspecific white matter changes, otherwise unremarkable with no acute stroke. CT scan of the head was normal. At the time of the consultation, Mr. Kaplan feels that he is back to his baseline. He is not sure of what has occurred. His symptoms were similar to a year ago. His anxiety is managed by his primary physician with Wellbutrin and Xanax at least three times a day. He finds that this regimen works very well. He denies any physical dependence on the Xanax. He reports compliance with his Wellbutrin given that it controls his moods. He has a son and is not certain if his son inherited his anxiety. 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 PAST MEDICAL HISTORY 1. Anxiety/depression 2. Hypertension 3. Dyslipidemia 4. TIA 5. Gastroesophageal reflux. PAST SURGICAL HISTORY Vasectomy. Right leg surgery. SOCIAL HISTORY He drinks occasionally. He smokes marijuana. He smokes a pack per week. ALLERGIES NO KNOWN DRUG ALLERGIES. CURRENT MEDICATIONS 6. Microzide. 7. Lipitor 8. Proair. 9. Xanax. 10. Prinivil. 11. Percocet p.r.n. 12. Ambien p.r.n. 13. Protonix. 14. Plavix. PHYSICAL EXAMINATION VITAL SIGNS: Temperature 96.3, heart rate 92, respiratory 20, blood pressure 154/120, saturation 96%. GENERAL: Mr. Kaplan is a well-developed, well-nourished man who looks his stated age. He looks anxious. His speech is fluent. HEENT: His pupils are round, reactive to light and accommodation. Oropharynx is clear. Neck is supple. Lungs are clear to auscultation. Cardiovascular: Exam reveals normal rate, rhythm. Abdomen is benign. Lower extremity with no edema. Neurological: Exam is nonfocal. LABORATORY DATA Significant for CBC with mild anemia. Hemoglobin of 12.9, white blood cell count, platelet count are normal. Chemistry with a sodium normal, potassium of 3.4, B12 level was low. ASSESSMENT/PLAN Mr. Kaplan is a 50-year-old man with multiple medical problems described above. His prominent symptoms are related to his generalized anxiety disorder. He has been diagnosed with anxiety for 20 years and is compliant with his anxiety medicine particularly his Wellbutrin and Xanax. He came in with a history of slurred speech. He was normal at the time of the presentation. It is not clear the etiology of his slurred speech as the workup for TIA has been negative. He reports someone speaking other than himself. He was quite aware of this. He denies it being a conversion disorder. We discussed the concern for thrombophilia evaluation. It is not certain if he had a thrombotic event. He reports having a stroke or TIA in the past. The outcome of that is not clear. He is not on aspirin prophylaxis regularly. Review of the labs showed decrease in serum B12 level. I recommend empiric treatment. I will check factor anti-parietal cell antibody. He is offered to follow up in the clinic up. In the meantime, I will limit the workup to checking antiphospholipid antibodies which would be helpful. If positive it would suggest that aspirin prophylaxis indefinitely would be indicated. MD KRISTOPHER Lunsford/SERA /5:28 PM /7:28 PM
[2016-06-15] MEDS ORDERED: ATORVASTATIN 40 MG TAB PO SCH ×2 (21:00)
[2016-06-16] VITALS: BP 132/87; PULSE 79; RESP 16; TEMP 97; O2SAT 95
[2016-06-16] MEDS: ALPRAZolam 1 MG TAB PO PRN ×2 (00:48→09:14)
[2016-06-16 04:00] VITALS: BP 154/100; PULSE 82; RESP 18; TEMP 95.6; O2SAT 96
--- NOTE | 2016-06-16 05:56 | EKG ---
Date Performed: 06/15/2016 Time Performed: 15:19:26 PTAGE: 50 years EKG: Sinus rhythm Normal ECG PREVIOUS TRACING : 06/15/2016 05.59 Compared to prior tracing no significant change DOCTOR: Manasa Rosario Interpretating Date/Time 06/16/2016 05:56:04
[2016-06-16] MEDS: INSULIN ASPART SUPPLEMENTAL SCALE SQ SCH ×3 (06:04→16:00)
[2016-06-16] MEDS: oxyCODONE/ACETAMINOPHEN 7.5 MG/325 MG TAB PO PRN (06:09)
[2016-06-16] MEDS: CLOPIDOGREL 75 MG TAB PO SCH (08:17)
[2016-06-16] MEDS: PANTOPRAZOLE SOD 20 MG DELAYED RELEASE TAB PO SCH (08:17)
[2016-06-16] MEDS: LISINOPRIL 10 MG TAB PO SCH (08:17)
[2016-06-16] MEDS: SODIUM CHLORIDE 0.9% FLUSH 10 ML FLUSH IV FLUSH SCH (08:20)
[2016-06-16] MEDS: HEPARIN SODIUM - SQ 10,000 UNITS/ML VIAL SQ SCH ×2 (08:20→15:40)
--- NOTE | 2016-06-16 08:29 | PD.PN.STU ---
Subjective Remarks no recurrences of TIA/stroke symptoms reports IBS is bothering him today, has concerns about exerting himself for stress test reports some epigastric pain which he believes is GERD pending blood work Objective Vitals GENERAL: Well-developed well-nourished male in no acute distress no respiratory distress SKIN: Warm and dry. HEAD: Atraumatic. Normocephalic. EYES: Pupils equal and round. No scleral icterus. No injection or drainage. Extraocular movements intact. ENT: Mucous membranes pink and moist. NECK: Trachea midline. No JVD. CARDIOVASCULAR: Regular rate and rhythm. Radial and dorsalis pedis pulses appreciated bilaterally. RESPIRATORY: No accessory muscle use. Clear to auscultation. Breath sounds equal bilaterally. GASTROINTESTINAL: Abdomen soft, non-tender, nondistended. No organomegaly. MUSCULOSKELETAL: Extremities without clubbing, cyanosis, or edema. No obvious deformities. NEUROLOGICAL: Awake and alert. No obvious cranial nerve deficits. Motor grossly within normal limits. Five out of 5 muscle strength in the arms and legs. No limb ataxia. No pronator drift. Normal speech. PSYCHIATRIC: Appropriate mood and affect; insight and judgment normal. Vital Signs Date Time Temp Pulse Resp B/P Pulse Ox O2 Delivery O2 Flow Rate FiO2 06/16/16 04:00 95.6 82 18 154/100 96 06/16/16 00:00 97.0 79 16 132/87 95 06/15/16 20:30 79 06/15/16 20:08 95 21 06/15/16 20:00 97.7 82 18 149/114 96 06/15/16 16:00 96.3 92 20 154/120 96 06/15/16 12:00 97.5 88 20 151/111 98 06/15/16 11:38 96 21 06/15/16 08:30 96.8 85 20 155/121 98 I/O 06/15/16 06/15/16 06/15/16 06/16/16 06/16/16 06/16/16 07:00 15:00 23:00 07:00 15:00 23:00 Intake Total 420 ml 280 ml 1290 ml Output Total 300 ml 0 ml Balance 120 ml 280 ml 1290 ml Intake Oral 280 ml 640 ml IV Total 420 ml 650 ml Output Urine Total 300 ml Stool Total 0 ml # Voids 1 1 3 # Bowel Movements 0 Result Diagram: 06/15/1648 06/15/16547 A/P Assessment and Plan TIA: No recurrences of symptoms Plavix for anticoagulation Chest pain: Possibly due to GERD which he says he suffers with Troponins came back negative Plan to do stress testing if he feels up to it later today/tomorrow Hypertension: Currently 154/100 Increase HCTZ to 25 mg Hyperlipidemia: Order lipid panel Hypokalemia: Continue to monitor - currently 3.5 on 06/15 Hypocalcemia: Continue to monitor - currently 8.1 on 06/15 GERD: On pantoprazole Chronic lower back pain: Continue home medications - Percocet Depression: Continue Wellbutrin Anxiety: Xanax Gonzalo Garsia June 16, 2016 08:28 Daren Umaña MD June 16, 2016 14:13
[2016-06-16 08:54] VITALS: BP 146/113; PULSE 82; RESP 15; TEMP 97.8; O2SAT 96
[2016-06-16] MEDS ORDERED: HYDROCHLOROTHIAZIDE 12.5 MG CAP PO SCH (09:00)
[2016-06-16 09:27] LABS: HDL CHOLESTEROL 35.2 MG/DL (40.0-60.0)
[2016-06-16] MEDS ORDERED: ACETAMINOPHEN 325 MG TAB PO PRN (10:30)
[2016-06-16] MEDS ORDERED: ONDANSETRON ODT 4 MG TAB PO PRN (10:30)
[2016-06-16 11:53] VITALS: BP 138/112; PULSE 68; RESP 15; TEMP 96.7; O2SAT 98
[2016-06-16] MEDS ORDERED: HYDROCHLOROTHIAZIDE 12.5 MG CAP PO ONE (12:45)
--- NOTE | 2016-06-16 12:55 | HHI.PR ---
Subjective Remarks patient c/o diffuse abdominal pain or diarrhea states is due to IBS denies cp/sob denies fevers/chills bp slightly elevated this am, especially diastolic K low 3.4 Objective Vitals Vital Signs Date Time Temp Pulse Resp B/P Pulse Ox O2 Delivery O2 Flow Rate FiO2 06/16/16 11:53 96.7 68 15 138/112 98 06/16/16 08:54 97.8 82 15 146/113 96 06/16/16 04:00 95.6 82 18 154/100 96 06/16/16 00:00 97.0 79 16 132/87 95 06/15/16 20:30 79 06/15/16 20:08 95 21 06/15/16 20:00 97.7 82 18 149/114 96 06/15/16 16:00 96.3 92 20 154/120 96 I/O 06/15/16 06/15/16 06/15/16 06/16/16 06/16/16 06/16/16 07:00 15:00 23:00 07:00 15:00 23:00 Intake Total 420 ml 280 ml 1290 ml Output Total 300 ml 0 ml Balance 120 ml 280 ml 1290 ml Intake Oral 280 ml 640 ml IV Total 420 ml 650 ml Output Urine Total 300 ml Stool Total 0 ml # Voids 1 1 3 # Bowel Movements 0 Result Diagram: 06/15/16 0548 06/15/16 0548 Imaging Last Impressions Head CT 06/15/1646 Signed Impressions: Service Date/Time: Wednesday, June 15, 2016 05:44 - CONCLUSION: Normal examination. Memo Vela Jr., MD Chest X-Ray 06/15/16 0546 Signed Impressions: Service Date/Time: Wednesday, June 15, 2016 06:20 - CONCLUSION: No acute disease. Memo Vela Jr., MD Head Magnetic Resonance Angiography 06/15/16 0000 Signed Impressions: Service Date/Time: Wednesday, June 15, 2016 07:57 - CONCLUSION: 1. Normal variants as described above. 2. Atherosclerotic changes of the distal posterior cerebral arteries. 3. No major vessel occlusion/stenosis. Julio Clay MD Brain MRI 06/15/16 0000 Signed Impressions: Service Date/Time: Wednesday, June 15, 2016 07:57 - CONCLUSION: 1. Minimal nonspecific white matter changes. 2. Otherwise unremarkable MRI of the brain. Julio Clay MD Objective Remarks GENERAL: This is a well-nourished, well-developed patient, in no apparent distress. SKIN: No rashes, ecchymoses or lesions. Cool and dry. HEAD: Atraumatic. Normocephalic. No temporal or scalp tenderness. EYES: Pupils equal round and reactive. Extraocular motions intact. No scleral icterus. No injection or drainage. ENT: Nose without bleeding, purulent drainage or septal hematoma. Throat without erythema, tonsillar hypertrophy or exudate. Uvula midline. Airway patent. NECK: Trachea midline. No JVD or lymphadenopathy. Supple, nontender, no meningeal signs. CARDIOVASCULAR: Regular rate and rhythm without murmurs, gallops, or rubs. RESPIRATORY: Clear to auscultation. Breath sounds equal bilaterally. No wheezes , rales, or rhonchi. GASTROINTESTINAL: Abdomen soft, mild diffuse tenderness to palpation, nondistended. No hepato-splenomegaly, or palpable masses. No guarding. MUSCULOSKELETAL: Extremities without clubbing, cyanosis, or edema. No joint tenderness, effusion, or edema noted. No calf tenderness. Negative Homans sign bilaterally. NEUROLOGICAL: Awake and alert. Cranial nerves II through XII intact. Motor and sensory grossly within normal limits. Five out of 5 muscle strength in all muscle groups. Normal speech. Medications and IVs Current Medications Medications (Trade) Dose Ordered Sig/Vishnu Route Start Time Stop Time Status Last Admin (NS Flush) 2 ml BID IV FLUSH 06/15/16 09:00 06/15/16 23:05 (NS Flush) 2 ml UNSCH PRN IV FLUSH 06/15/16 06:30 (D50w (Vial) Inj) 25 ml UNSCH PRN IV PUSH 06/15/16 06:30 (Glucagon Inj) 1 mg UNSCH PRN OTHER 06/15/16 06:30 (Plavix) 75 mg DAILY PO 06/15/16 09:30 06/16/16 08:17 (Heparin Inj) 5,000 units DAILY@00,08,16 SQ 06/15/16 09:30 06/16/16 08:20 (Lipitor) 40 mg HS PO 06/15/16 21:00 06/15/16 21:59 (Proair Hfa Inh) 2 puff Q6H PRN INH 06/15/16 14:00 (Xanax) 1 mg Q8H PRN PO 06/15/16 14:00 06/16/16 09:14 Patient Own Medication PT OWN MED: buPROP... DAILY PO 06/15/16 15:15 Hold (Prinivil) 10 mg DAILY PO 06/15/16 14:00 06/16/16 08:17 (Percocet 7.5-325 Mg) 1 tab Q6H PRN PO 06/15/16 14:00 06/16/16 06:09 (Ambien) 10 mg HS PRN PO 06/15/16 14:00 06/15/16 22:00 (Protonix) 20 mg DAILY PO 06/15/16 14:00 06/16/16 08:17 (Zofran Odt) 4 mg Q6H PRN PO 06/16/16 10:30 06/16/16 11:04 (Tylenol) 650 mg Q4H PRN PO 06/16/16 10:30 06/16/16 11:05 (Hydrodiuril) 25 mg DAILY PO 06/17/16 09:00 (Bentyl) 20 mg QID PO 06/16/16 13:00 06/16/16 13:19 (Lactinex) 1 tab TID PO 06/16/16 13:00 06/16/16 13:20 A/P Problem List: (1) TIA (transient ischemic attack) ICD Code: G45.9 Status: Acute Plan: Head CT normal Brain MRI minimal nonspecific white matter changes, otherwise normal. Head MRA normal viands. Atherosclerotic changes of the distal posterior cerebral arteries but no major vessel occlusion/stenosis observed. Place patient under observation in the medical floor Monitor neuro checks every 4 hours Appreciate nephrology recommendations Neurology recommends changing aspirin to Plavix, BP control since diastolic blood pressure running high The dose of lisinopril has been increased from 10-20 mg by mouth daily. I will increase the dose of hydrochlorothiazide to 25 mg by mouth daily since blood pressure is still slightly elevated. Continue to monitor vital signs. No further episodes of slurred speech. Appreciate hematology consultation. Antiphospholipid antibodies were ordered as per hematology. Dr. Caldwell ordered a parietal cell antibodies and antiphospholipid antibodies. We'll follow-up recommendations. B12 also noted to be low, patient started on IV vitamin B12 empiric treatment. (2) Anxiety disorder ICD Code: F41.9 Status: Chronic Plan: To be stable at this time, continue Wellbutrin, alprazolam (3) Hypertension ICD Code: I10 Status: Chronic Plan: Seems to be slightly elevated. The dose of lisinopril has been increased from 10-20 mg by mouth daily. Hydrochlorothiazide dose will be increased to 25 mg by mouth daily since the diastolic blood pressure is still elevated. (4) HLD (hyperlipidemia) ICD Code: E78.5 Status: Acute Plan: Continue statin. Fasting lipid profile shows elevated triglycerides of 322, LDL cholesterol 32 and LDL cholesterol 35.2. (5) Chest pain ICD Code: R07.9 Status: Acute Plan: Patient is complaining of recurrent left-sided chest pain. EKG reviewed by me showed normal sinus rhythm without signs of ischemia. Serial EKGs without change. Troponins were checked and negative 2. Will order nuclear stress test to be done today. Patient has several cardiac risk factors including hypertension, hyperlipidemia, current smoking, TIA and unknown family history. (6) Abdominal pain ICD Code: R10.9 Status: Acute Plan: Possibly due to IBS. Patient states that this is similar to when he hits his IBS symptoms. It is usually diarrhea predominant. I will Rx Bentyl, Librax and probiotics. Assessment and Plan GI prophylaxis: PPI DVT prophylaxis: SCDs, heparin subcutaneous. Discharge Planning Possible discharge later today or in a.m. pending stress testing result and improvement in abdominal pain. Problem Qualifiers (1) TIA (transient ischemic attack): Qualified Code: G45.9 - Transient cerebral ischemia, unspecified type (2) Anxiety disorder: Qualified Code: F41.1 - Generalized anxiety disorder (3) Hypertension: Qualified Code: I10 - Essential hypertension (4) HLD (hyperlipidemia): Qualified Code: E78.2 - Mixed hyperlipidemia (5) Chest pain: Qualified Code: R07.9 - Chest pain, unspecified type (6) Abdominal pain: Qualified Code: R10.9 - Abdominal pain, unspecified location Daren Umaña MD June 16, 2016 12:55
[2016-06-16] MEDS: DICYCLOMINE HCL 20 MG TAB PO SCH ×2 (13:19→18:25)
[2016-06-16] MEDS: LACTOBACILLUS ACIDOPHILUS TAB PO SCH ×2 (13:20→18:26)
[2016-06-16] MEDS ORDERED: REGADENOSON INJ 0.4 MG/5 ML SYR IV ONE (13:43)
--- NOTE | 2016-06-16 16:14 | RADHPO ---
EXAM DATE/TIME: 06/16/2016 13:44 [facility] COMPARISON: No previous studies available for comparison. INDICATIONS : Left sided chest pain. Angina. DOSE: 25.4 mCi Tc99m Myoview at stress. 8.5 mCi Tc99m Myoview at rest. 0.4 mg Lexiscan STRESS SYMPTOMS: Dyspnea. EJECTION FRACTION: 49% MEDICAL HISTORY : Hypertension. SURGICAL HISTORY : Vasectomy. ENCOUNTER: Initial ACUITY: 1 day PAIN SCALE: 6/10 LOCATION: Left chest TECHNIQUE: The patient underwent pharmacologic stress with infusion of prescribed dose. Continuous ECG tracing was monitored during stress. Gated SPECT imaging was performed after stress and conventional SPECT i maging was performed at rest. The examination was performed on a SPECT/CT scanner, both attenuation and non-corrected datasets were reviewed. FINDINGS: The best perfused myocardium is the anterior wall followed by the septum and the inferior wall. Ther e are no fixed defects to suggest infarction. There is no redistribution to suggest ischemia. CONCLUSION: Negative for stress-induced ischemia. RISK CATEGORY: Low (<1% Annual Mortality Rate) Venkat Boogie MD FACR on June 16, 2016 at 16:11 Board Certified Radiologist. This report was verified electronically.
[2016-06-16] MEDS ORDERED: chlordiazePOXIDE/CLIDINIUM 5 MG/2.5 MG CAP PO SCH (17:00)
[2016-06-16 17:02] VITALS: BP 141/99; PULSE 67; RESP 16; TEMP 96.9; O2SAT 94
[2016-06-16] MEDS ORDERED: LIBRAX PO (17:22)
[2016-06-16] MEDS ORDERED: ATOR40TA16 PO (17:36)
[2016-06-16] MEDS ORDERED: BENT20TA PO (17:36)
[2016-06-16] MEDS ORDERED: PLAV75TA29 PO (17:36)
[2016-06-16] MEDS ORDERED: HYDR25TA5 PO (17:36)
--- NOTE | 2016-06-16 17:41 | HHI.DCPOC ---
Discharge Care Plan Diagnosis: (1) TIA (transient ischemic attack) Goals to Promote Your Health * To prevent worsening of your condition and complications * To maintain your health at the optimal level Directions to Meet Your Goals Take your medications as prescribed Follow your dietary instruction Follow activity as directed Keep your appointments as scheduled Take your immunizations and boosters as scheduled If your symptoms worsen call your PCP, if no PCP go to Urgent Care Center or Emergency Room Smoking is Dangerous to Your Health. Avoid second hand smoke Call the 24-hour hour crisis hotline for domestic abuse at Regan Singh June 16, 2016 17:41
--- NOTE | 2016-06-16 17:54 | HHI.PR ---
Addendum To [facility] Progress Not Reason for addendum: Additonal documentation (case was discussed with Dr. Huber. Patient stress test was negative. I did talk to the patient and give him the results of stress test. Patient workups completed this time. Patient has TIA been started on prevention therapy with Plavix. I discussed with the patient that case management has left for the day, unable to provide patient care assistance at this time. I notified him that he can go to the main [facility], or return here in the morning and they will be able to supply him with patient care assistance, blue card for prescription benefits. Plan to discharge home in stable condition, activity: Ad meron., diet: Healthy heart diet , medications per medication reconciliation, follow-up primary medical doctor one week, neurologist in 2 weeks, retail event and sales assistant in 2 weeks) Regan Singh June 16, 2016 17:54
[2016-06-17] MEDS ORDERED: HYDROCHLOROTHIAZIDE 25 MG TAB PO SCH (09:00)
[2016-06-18 17:52] LABS: INTRINSIC FACTOR BLOCKING AUTO POSITIVE (())
[2016-06-21 03:49] LABS: BETA2 GLYCOPROTEIN I AB IGA LESS THAN 9.0 SAU (< OR = 20)
[2016-07-07] MEDS ORDERED: CYCL1TAB29 PO (16:17)
[2016-07-08] MEDS ORDERED: ZOLP10TA3 PO (15:42)
[2016-07-13] MEDS ORDERED: XANA1TAB2 PO (13:53)
[2016-07-13] MEDS ORDERED: ZOLP10TA3 PO (13:53)
[2016-07-13] MEDS ORDERED: PERC7.5T13 PO (13:53)
[2016-08-05] MEDS ORDERED: WELLTAB39 PO (14:54)
[2016-08-05] MEDS ORDERED: PERC7.5T13 PO (14:54)
[2016-08-05] MEDS ORDERED: XANA1TAB2 PO (14:54)
== END 2016-06-16 18:51 | disposition home or self-care (01) ==
LOC: PHED 05:32 → PHEDA 06:32 → PH3A 09:12
PROVIDERS: ADMIT Family Medicine; ATTEND Family Medicine
DX: G45.9 Transient cerebral ischemic attack, unspecified (principal); E87.6 Hypokalemia; E83.51 Hypocalcemia; M54.5 Low back pain; I10 Essential (primary) hypertension; K21.9 Gastro-esophageal reflux disease without esophagitis; R10.9 Unspecified abdominal pain; R07.9 Chest pain, unspecified; F41.1 Generalized anxiety disorder; G89.4 Chronic pain syndrome; F31.9 Bipolar disorder, unspecified; E78.5 Hyperlipidemia, unspecified; E78.00 Pure hypercholesterolemia, unspecified; F12.90 Cannabis use, unspecified, uncomplicated; F17.200 Nicotine dependence, unspecified, uncomplicated; Z88.8 Allergy status to other drugs, medicaments and biological substances; Z79.82 Long term (current) use of aspirin
CPT/HCPCS: 70450; 70544; 70551; 71010; 78452; 80048; 80061; 80307; 81001; 82607; 82948; 83036; 83516; 84443; 84484; 85025; 85610; 85613; 85730; 86146; 86147; 86340; 92523; 92610; 93005; 93017; 93306; 95819; 99285; A9502; G0378; G8996; G8997; G8998; G8999; G9158; G9186; J1644; J2785; J3420; J7030

== ENCOUNTER 2016-08-19 11:58 | Emergency (ER) | payer SELFPAY ==
[~2016-08-19] VITALS: Ht 172.7 cm; Wt 81.0 kg
[~2016-08-19 11:58] MED LIST changes: +BENT20TA PO; -HYDR12.57 PO; +HYDR25TA5 PO; +LIBRAX PO; +OMEP20TA PO; +PLAV75TA29 PO; -VIAG100T PO
[2016-08-19 12:00] VITALS: BP 155/111; PULSE 100; RESP 18; O2SAT 96
[2016-08-19] MEDS ORDERED: SODIUM CHLOR 0.9% 1000 ML INJ 1,000 ML IV SCH (12:09)
[2016-08-19] MEDS ORDERED: SODIUM CHLORIDE 0.9% FLUSH 10 ML FLUSH IV FLUSH PRN (12:15)
[2016-08-19] MEDS ORDERED: HYDROmorphone HCL PF 1 MG/ML VIAL IVS ONE (12:15)
[2016-08-19] MEDS ORDERED: ONDANSETRON HCL 4 MG/2 ML VIAL IVP ONE (12:15)
--- NOTE | 2016-08-19 12:16 | PD ---
HPI Chief Complaint: Abdominal Pain Time Seen by Provider: 12:05 Travel History International Travel<30 days: No Contact w/Intl Traveler<30days: No Traveled to known affect area: No History of Present Illness HPI The patient's 50 years old. He has severe left lower quadrant pain which started about a few hours prior to ER arrival. He tried taking a bath. He has irritable bowel syndrome and reports using 6 enemas today. He is had no hematuria dysuria or frequency. He denies a history of kidney stones. The pain does not radiate. Onset sudden. PFSH Past Medical History Arthritis: No Asthma: Yes Autoimmune Disease: No Blood Disorders: No Anxiety: Yes Depression: Yes Heart Rhythm Problems: No Cancer: No Cardiovascular Problems: No High Cholesterol: Yes Chemotherapy: No Chest Pain: No Congestive Heart Failure: No COPD: No Cerebrovascular Accident: No Diabetes: No Diminished Hearing: No Endocrine: No Gastrointestinal Disorders: Yes (IBS) GERD: No Genitourinary: No Headaches: No Hiatal Hernia: No Heparin Induced Thrombocytopen: No Hypertension: Yes Immune Disorder: No Implanted Vascular Access Dvce: No Kidney Stones: No Musculoskeletal: No Neurologic: No Psychiatric: Yes Reproductive: No Respiratory: No Migraines: No Radiation Therapy: No Renal Failure: No Seizures: No Sickle Cell Disease: No Sleep Apnea: No Thyroid Disease: No Ulcer: No Tetanus Vaccination: < 5 Years Past Surgical History Abdominal Surgery: No AICD: No Arteriovenous Shunt: No Cardiac Surgery: No Ear Surgery: No Endocrine Surgery: No Eye Surgery: No Genitourinary Surgery: No Gynecologic Surgery: No Insulin Pump: No Joint Replacement: No Neurologic Surgery: No Oral Surgery: No Pacemaker: No Thoracic Surgery: No Other Surgery: Yes (vascetomy) Social History Alcohol Use: Yes (occ) Tobacco Use: Yes (1 PACK PER WEEK) Substance Use: No Allergies-Medications (Allergen,Severity, Reaction): Coded Allergies: *MDRO Multi-Drug Resistant Organism (Verified Adverse Reaction, Unknown, ) 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 MRSA PCR Screen NEGATIVE - 09/26/2014 and 02/13/2015 CLEARED by Infection Control Reported Meds & Prescriptions Reported Meds & Active Scripts Active Zofran Odt (Ondansetron Odt) 4 Mg Tab 4 Mg SL Q8HR PRN Flomax (Tamsulosin HCl) 0.4 Mg Cap 0.4 Mg PO HS Percocet (Oxycodone-Acetaminophen) 5-325 mg Tab 2 Tab PO Q8HR PRN Xanax (Alprazolam) 1 Mg Tab 1 Mg PO Q8H PRN Wellbutrin Xl 24 HR (Bupropion HCl) 300 Mg Tab 450 Mg PO DAILY Hydrochlorothiazide 25 Mg Tab 25 Mg PO DAILY 30 Days Plavix (Clopidogrel Bisulfate) 75 Mg Tab 75 Mg PO DAILY 30 Days Lisinopril 10 Mg Tab 10 Mg PO DAILY Reported Bentyl (Dicyclomine HCl) 10 Mg Cap 20 Mg PO QID Omeprazole 20 Mg Tab 20 Mg PO DAILY Review of Systems Except as stated in HPI: all other systems reviewed are Neg Physical Exam Narrative GENERAL: 50-year-old male pleasant well-nourished well-developed moderate distress secondary to pain SKIN: Focused skin assessment warm/dry. HEAD: Atraumatic. Normocephalic. EYES: Pupils equal and round. No scleral icterus. No injection or drainage. ENT: No nasal bleeding or discharge. Mucous membranes pink and moist. NECK: Trachea midline. No JVD. CARDIOVASCULAR: Regular rate and rhythm. No murmur appreciated. RESPIRATORY: No accessory muscle use. Clear to auscultation. Breath sounds equal bilaterally. GASTROINTESTINAL: Soft. Diffuse nonspecific tenderness to palpation. MUSCULOSKELETAL: No obvious deformities. No clubbing. No cyanosis. No edema. NEUROLOGICAL: Awake and alert. No obvious cranial nerve deficits. Motor grossly within normal limits. Normal speech. PSYCHIATRIC: Appropriate mood and affect; insight and judgment normal. Data Data Last Documented VS Vital Signs Date Time Temp Pulse Resp B/P Pulse Ox O2 Delivery O2 Flow Rate FiO2 08/19/16 13:45 98.5 08/19/16 12:19 16 97 Room Air 08/19/16 12:00 100 155/111 Orders Urinalysis - C+S If Indicated (08/19/16 12:00) Complete Blood Count With Diff (08/19/16 12:09) Lipase (08/19/16 12:09) Ct Abd/Pel W/O Iv Contrast (08/19/16 12:09) Iv Access Insert/Monitor (08/19/16 12:09) Ecg Monitoring (08/19/16 12:09) Oximetry (08/19/16 12:09) Ondansetron Inj (Zofran Inj) (08/19/16 12:15) Sodium Chlor 0.9% 1000 Ml Inj (Ns 1000 M (08/19/16 12:09) Sodium Chloride 0.9% Flush (Ns Flush) (08/19/16 12:15) Hydromorphone Pf Inj (Dilaudid Pf Inj) (08/19/16 12:15) Ketorolac Inj (Toradol Inj) (08/19/16 12:45) Basic Metabolic Panel (Bmp) (08/19/16 13:31) Labs Laboratory Tests Test 08/19/16 08/19/16 12:10 13:50 White Blood Count 16.3 TH/MM3 Red Blood Count 4.83 MIL/MM3 Hemoglobin 14.3 GM/DL Hematocrit 41.4 % Mean Corpuscular Volume 85.6 FL Mean Corpuscular Hemoglobin 29.7 PG Mean Corpuscular Hemoglobin 34.7 % Concent Red Cell Distribution Width 11.9 % Platelet Count 413 TH/MM3 Mean Platelet Volume 7.1 FL Neutrophils (%) (Auto) 84.3 % Lymphocytes (%) (Auto) 9.9 % Monocytes (%) (Auto) 5.1 % Eosinophils (%) (Auto) 0.6 % Basophils (%) (Auto) 0.1 % Neutrophils # (Auto) 13.8 TH/MM3 Lymphocytes # (Auto) 1.6 TH/MM3 Monocytes # (Auto) 0.8 TH/MM3 Eosinophils # (Auto) 0.1 TH/MM3 Basophils # (Auto) 0.0 TH/MM3 CBC Comment DIFF FINAL Differential Comment Sodium Level 146 MEQ/L Potassium Level 3.4 MEQ/L Chloride Level 110 MEQ/L Carbon Dioxide Level 28.4 MEQ/L Anion Gap 8 MEQ/L Blood Urea Nitrogen 14 MG/DL Creatinine 1.40 MG/DL Estimat Glomerular Filtration 53 ML/MIN Rate Random Glucose 124 MG/DL Calcium Level 9.2 MG/DL Lipase 142 U/L Urine Collection Type CLEAN CATCH Urine Color YELLOW Urine Turbidity SLIGHT Urine pH 6.0 Urine Specific Gregory 1.021 Urine Protein 30 mg/dL Urine Glucose (UA) NEG mg/dL Urine Ketones NEG mg/dL Urine Occult Blood LARGE Urine Nitrite NEG Urine Bilirubin NEG Urine Leukocyte Esterase NEG Urine RBC 100-200 /hpf Urine WBC 6-8 /hpf Urine Squamous Epithelial 0-5 /hpf Cells Urine Yeast (Budding) MOD Microscopic Urinalysis Comment CULT NOT INDICATED Urine Collection Time 13:50 MDM Medical Decision Making Medical Screen Exam Complete: Yes Emergency Medical Condition: Yes Medical Record Reviewed: Yes Differential Diagnosis Constipation, Gastritis, Acute Cholecystitis, Biliary Colic, Pancreatitis, AG , Hepatitis, Bowel Obstruction, Cystitis, Mesenteric Ischemia, AAA, Appendicitis , Renal Stone/Hydronephrosis, GERD, perforated viscous Narrative Course CBC & BMP Diagram 08/19/16 12:10 UA: hematuria, no UTI Last 24 hours Impressions Abdomen/Pelvis CT 08/19/16 1209 Signed Impressions: Service Date/Time: , August 19, 2016 12:56 - CONCLUSION: 1. The examination demonstrates a 3 mm stone in the proximal left ureter with moderate hydronephrotic changes of the left kidney. 2. There are 2 punctate nonobstructing stones seen in the collecting system of the left kidney as well. 3. There is a single 2 mm nonobstructing stone seen within the right kidney. 4. 1.7 cm simple cyst on the right. Candido Boogie MD The patient is resting comfortably and feels better, is alert and in no distress. The patients results and examination findings were discussed. The repeat examination is unremarkable and benign. The history, exam, diagnostic testing, and current condition do not suggest any significant pathology to warrant further testing, continued ED treatment, admission, or surgical evaluation at this point. The vital signs have been stable. The patient does not have uncontrollable pain, intractable vomiting, or other significant symptoms. The patient's condition is stable and appropriate for discharge. The patient will pursue further outpatient evaluation with a primary care physician or other designated or consulting physician as indicated in the discharge instructions. The patient expressed understanding and was agreeable with this plan. Diagnosis Primary Impression: Ureterolithiasis Additional Impression: Hydronephrosis Qualified Code: N13.2 - Hydronephrosis with urinary obstruction due to ureteral calculus Referrals: Shashank Escudero MD 2 days Additional Instructions: You have a choice when it comes to health care, and we are glad that you chose [facility]. Hopefully, we have met your expectations on today's visit. You are welcome to return to [facility] at any time, as we are committed to meeting the health care needs of our community. Med/Other Pt SpecificInfo: Prescription(s) given Scripts Ondansetron Odt (Zofran Odt)4 Mg Tab4 Mg SL Q8HR PRN (Nausea/Vomiting) #10 TAB Ref 0 Prov:Candido Humphreys MD 08/19/16 Tamsulosin (Flomax)0.4 Mg Cap0.4 Mg PO HS #4 CAP Ref 0 Prov:Candido Humphreys MD 08/19/16 Oxycodone-Acetaminophen (Percocet)5-325 mg Tab2 Tab PO Q8HR PRN (PAIN SCALE 6 TO 10) #30 TAB Ref 0 Prov:Candido Humphreys MD 08/19/16 Disposition: 01 DISCHARGE HOME Condition: Stable Candido Humphreys MD Aug 19, 2016 12:16
[2016-08-19 12:19] VITALS: RESP 16; O2SAT 97
[2016-08-19] MEDS ORDERED: DICY10 PO (12:32)
[2016-08-19] MEDS ORDERED: KETOROLAC TROMETHAMINE 30 MG/ML (IVP) VIAL IV PUSH ONE (12:45)
[2016-08-19 12:49] LABS: AUTOMATED NEUTROPHIL # 13.8 TH/MM3 (1.8-7.7); BASOPHIL % 0.1 % (0.0-2.0); EOSINOPHIL # 0.1 TH/MM3 (0-0.4); EOSINOPHIL % 0.6 % (0.0-4.0); HEMATOCRIT 41.4 % (39.0-51.0); HEMO FLAGS DIFF FINAL; LYMPH % 9.9 % (9.0-44.0); LYMPHOCYTE # 1.6 TH/MM3 (1.0-4.8); MEAN CELL VOLUME 85.6 FL (80.0-100.0); MEAN CORPUSCULAR HEMOGLOBIN 29.7 PG (27.0-34.0); MEAN CORPUSCULAR HGB CONC 34.7 % (32.0-36.0); MONO % 5.1 % (0.0-8.0); NEUT % 84.3 % (16.0-70.0); PLATELET COUNT 413 TH/MM3 (150-450); RED BLOOD COUNT 4.83 MIL/MM3 (4.50-5.90); RED CELL DISTRIBUTION WIDTH 11.9 % (11.6-17.2); WHITE BLOOD COUNT 16.3 TH/MM3 (4.0-11.0)
--- NOTE | 2016-08-19 13:30 | RADRPT ---
EXAM DATE/TIME: 08/19/2016 12:56 [facility] COMPARISON: CT BRAIN W/O CONTRAST, June 15, 2016, 5:44. INDICATIONS : Left lower quadrant pain. ORAL CONTRAST: No oral contrast ingested. RADIATION DOSE: 14.46 CTDIvol (mGy) MEDICAL HISTORY : Irritiable bowel syndrome. Hypertension. Asthma. SURGICAL HISTORY : None. ENCOUNTER: Initial ACUITY: 1 day PAIN SCALE: 10/10 LOCATION: Left lower quadrant TECHNIQUE: Volumetric scanning of the abdomen and pelvis was performed. Using automated exposure control and ad justment of the mA and/or kV according to patient size, radiation dose was kept as low as reasonably achievable to obtain optimal diagnostic quality images. DICOM format image data is available electro nically for review and comparison. FINDINGS: Right kidney/ureter: The right kidney is normal in size. There is a single 2 mm stone within the collecting system. There is a 1.7 cm cyst projecting off the lower pole. The right ureter is followed throughout its course and is normal in caliber. Left kidney/ureter: The left kidney demonstrates mild hydronephrotic changes. There are 2 punctate stones measuring appro ximately 1 mm within the collecting system. The left ureter is dilated proximally with a 3 mm stone i n its proximal aspect.Bladder: No stones are identified within the bladder. CT source data: The visualized portion of liver and spleen are unremarkable. The pancreas and adrenal glands are inta ct the noncontrast imaging. There is no retroperitoneal adenopathy. The abdominal aorta is normal in size. Loops of small large bowel are unremarkable. CONCLUSION: 1. The examination demonstrates a 3 mm stone in the proximal left ureter with moderate hydronephrotic changes of the left kidney. 2. There are 2 punctate nonobstructing stones seen in the collecting system of the left kidney as wel l. 3. There is a single 2 mm nonobstructing stone seen within the right kidney. 4. 1.7 cm simple cyst on the right. Candido Boogie MD on August 19, 2016 at 13:25 Board Certified Radiologist. This report was verified electronically.
[2016-08-19 13:45] VITALS: TEMP 98.5
[2016-08-19] MEDS ORDERED: PERC5TAB12 PO (13:57)
[2016-08-19] MEDS ORDERED: ZOFR4TAB3 SL (13:57)
[2016-08-19] MEDS ORDERED: TAMS5CAP PO (13:57)
[2016-08-19 13:58] LABS: POTASSIUM 3.4 MEQ/L (3.5-5.1)
[2016-08-19 14:01] LABS: BICARBONATE 28.4 MEQ/L (21.0-32.0)
[2016-08-19 14:02] LABS: BLOOD, URINE LARGE (NEG); GLUCOSE,URINE NEG (NEG); KETONE, URINE NEG (NEG); NITRITE,URINE NEG (NEG)
[2016-08-19 14:14] LABS: METHOD OF COLLECTION CLEAN CATCH; RBC, URINE 100-200 /hpf (0-3); URINE COLOR YELLOW (YELLW/STRAW)
[2016-08-19 14:15] LABS: COMMENT (UR) CULT NOT INDICATED; CULTURE IF INDICATED CULT NOT INDICATED; SQUAMOUS EPITHELIAL CELL URINE 0-5 /hpf (0-5)
[2016-08-19 14:30] VITALS: BP 168/100
[2016-08-20] MEDS ORDERED: ZOLP10TA3 PO (13:18)
[2016-08-26] MEDS ORDERED: KETO60IN6 IM (14:36)
[2016-08-26] MEDS ORDERED: TAMS5CAP PO (14:38)
[2016-08-26] MEDS ORDERED: ZOFR4TAB3 SL (14:38)
[2016-08-26] MEDS ORDERED: KETO10 PO (14:38)
[2016-08-28] MEDS ORDERED: HYDR25TA5 PO (10:22)
[2016-08-28] MEDS ORDERED: PLAV75TA29 PO (10:22)
== END 2016-08-19 14:35 | disposition home or self-care (01) ==
LOC: PHED 11:58
DX: N13.2 Hydronephrosis with renal and ureteral calculous obstruction (principal)
CPT/HCPCS: 74176; 80048; 81001; 83690; 85025; 96361; 96374; 96375; 99285; J1170; J1885; J2405; J7030